=== PATIENT | male | born 1980 | race Caucasian/White ===

== ENCOUNTER 2017-07-30 06:44 | Inpatient (IN) | payer OTHER ==
[~2017-07-30] VITALS: Ht 172.7 cm; Wt 99.9 kg
[2017-07-30] VITALS (9 sets, daily range): BP systolic 94–112; BP diastolic 53–70; PULSE 59–103; TEMP 36.5–36.7; O2SAT 92–95; Ht 172.7 cm; Wt 99.9 kg
[~2017-07-30 06:44] MED LIST: CETI10CH PO; MULT-513 PO; SNG10 PO
[2017-07-30] MEDS ORDERED: SODIUM CHLORIDE 0.9% 1000ML 1,000 ML IV STA (07:12)
[2017-07-30] MEDS ORDERED: ONDANSETRON INJ 2 MG/ML 2 ML VIAL IV STA ×2 (07:12→09:14)
[2017-07-30] MEDS ORDERED: MoRPHine SULFATE 4 MG/ML 1 ML CARP\\VIAL IV STA ×2 (07:12→09:14)
[2017-07-30] MEDS ORDERED: OPTIRAY 320 IV PRN (07:30)
[2017-07-30 07:47] LABS: BASO % 0.2 %; BASO ABS # 0.03 K/uL (0-0.2); COMPLETE YES; EOS % 0.1 %; HEMATOCRIT 45.2 % (42-52); IG% 0.2 %; LYMPH ABS # 0.92 K/uL (1.2-3.4); MEAN CELL VOLUME 83.7 fL (80-100); MEAN CORPUSCULAR HEMOGLOBIN 29.1 pg (25-34); MEAN CORPUSCULAR HGB CONC 34.7 g/dl (32-36); MEAN PLATELET VOLUME 9.7 fL (7.4-10.4); NEUT % 88.5 %; PLATELET COUNT 223 K/uL (130-400); WHITE BLOOD COUNT 15.46 K/uL (4.8-10.8)
[2017-07-30 08:02] LABS: BUN/CREATININE RATIO 14.6 (10-20); CALCIUM 9.1 mg/dl (8.5-10.1); CREATININE 1.1 mg/dl (0.60-1.40); POTASSIUM 3.9 mmol/L (3.5-5.1)
[2017-07-30 08:05] LABS: ALB/GLOB RATIO 1.2 (0.9-2)
--- NOTE | 2017-07-30 09:00 | DIAGNOSTIC IMAGING REPORT ---
ABDOMEN AND PELVIS CT WITH IV CONTRAST CT DOSE: 823.91 mGy.cm HISTORY: Right lower quadrant abdominal pain. TECHNIQUE: Multiaxial CT images of the abdomen and pelvis were performed following the use of intravenous contrast. A dose lowering technique was utilized adhering to the principles of ALARA. COMPARISON STUDY: None. FINDINGS: The lung bases are clear. The liver, spleen, adrenal glands, gallbladder, pancreas, and kidneys are unremarkable. No retroperitoneal lymphadenopathy. Normal bladder. No evidence for bowel obstruction. Dilated and fluid-filled appendix with mild periappendiceal fat stranding consistent with acute appendicitis. The appendix measures up to 1.4 cm and contains a 7 mm appendicolith. No perforation or abscess at this time. IMPRESSION: Acute appendicitis. Electronically signed by: Mauro Conner M.D. 07/30/2017 8:59 AM Dictated Date/Time: 07/30/2017 8:54 AM
[2017-07-30] MEDS ORDERED: PIPERACILLIN/TAZOBACTAM 4.5 GM/100ML D5W IV STA (09:14)
[2017-07-30 09:18] LABS: URINE APPEARANCE CLEAR (CLEAR); URINE BILIRUBIN NEG (NEG); URINE COLOR YELLOW; URINE NITRITE NEG (NEG); URINE SPECIFIC GRAVITY 1.031 (1.000-1.030); UROBILINOGEN NEG (NEG)
[2017-07-30 09:20] LABS: MANUAL MICROSCOPIC REQUIRED? NO; REVIEW REQ? NO
--- NOTE | 2017-07-30 09:36 | History and Physical ---
History & Physical Date Jul 30, 2017. Chief Complaint abdominal pain History of Present Illness The patient is a 36 year old male with complaints of RLQ abd pain w/u in ER shows CT evidence of acute appendicitis Additional History Hepatic Disease: No Endocrine Disorder: No Kidney Disease: No Hypertension: No Heart Disease: No Allergies Coded Allergies: Cat Dander (Verified Allergy, Unknown, NASAL CONGESTION, 09/10/14) Dust (Verified Allergy, Unknown, NASAL CONGESTION, 09/10/14) Grass (Verified Allergy, Unknown, NASAL CONGESTION, 09/10/14) No Known Drug Allergy (Verified Allergy, Unknown, NONE, 09/10/14) Tree Extract (Verified Allergy, Unknown, "TREE ALLERGY", 09/10/14) Uncoded Allergies: BEE STINGS (Allergy, Unknown, UNKNOWN, 07/30/17) Home Medications Scheduled Cetirizine Hcl (Cetirizine Hcl), 10 MG PO DAILY Multivitamins/Minerals (Mvi With Minerals), 1 TAB PO DAILY Physical Examination Skin: warm/dry Eyes: sclerae normal Head: atraumatic Neck: supple Respiratory/Chest: no respiratory distress Cardiovascular: regular rate, rhythm Abdomen / GI: + pertinent finding (mild distention, RLQ tenderness) Diagnosis acute appendicitis Plan of Treatment for laparoscopic appendectomy, possible open operation admit postop- IV fluids, atbx
[2017-07-30] MEDS ORDERED: EpHEDrine SULFATE INJ 50 MG/ML AMP IV PRN (09:45)
[2017-07-30] MEDS ORDERED: ATROPINE SULFATE 0.1 MG/ML 5ML SYR IV PRN (09:45)
[2017-07-30] MEDS ORDERED: HYDROmorphone INJ 1 MG/ML SYR IV PRN (09:45)
[2017-07-30] MEDS ORDERED: MEPERIDINE HCL 25 MG/ML CARP IV PRN (09:45)
[2017-07-30] MEDS ORDERED: ONDANSETRON INJ 2 MG/ML 2 ML VIAL IV PRN ×2 (09:45→11:15)
[2017-07-30] MEDS ORDERED: LABETALOL HCL IV 5 MG/ML 20ML IV PRN (09:45)
[2017-07-30] MEDS ORDERED: FENTANYL CITRATE INJ 50 MCG/1 ML 2 ML VIAL IV PRN (09:45)
[2017-07-30] MEDS ORDERED: DEXAMETHASONE SOD INJ 4 MG/ML VIAL ONE (09:56)
[2017-07-30] MEDS ORDERED: GLYCOPYRROLATE INJ 0.2 MG/ML VIAL ONE (09:56)
[2017-07-30] MEDS ORDERED: PROPOFOL IV EMULSION 10 MG/ML 20 ML VIAL IV ONE ×2 (09:56→09:58)
[2017-07-30] MEDS ORDERED: EpHEDrine SULFATE INJ 50 MG/ML AMP ONE (09:56)
[2017-07-30] MEDS ORDERED: SUCCINYLCHOLINE CHLORIDE 20 MG/ML 10 ML VIAL IV ONE (09:56)
[2017-07-30] MEDS ORDERED: PHENYLEPHRINE HCL INJ 10 MG/ML VIAL ONE (09:56)
[2017-07-30] MEDS ORDERED: LIDOCAINE HCL 2% 2 ML VIAL (20MG/ML) ONE (09:56)
[2017-07-30] MEDS ORDERED: NEOSTIGMINE METHYLSULFATE 5 MG/5 ML SYR ONE (09:56)
[2017-07-30] MEDS ORDERED: ONDANSETRON INJ 2 MG/ML 2 ML VIAL ONE (09:56)
[2017-07-30] MEDS ORDERED: MIDAZOLAM HCL 1 MG/ML 2ML VIAL ONE (09:57)
[2017-07-30] MEDS ORDERED: FENTANYL CITRATE INJ 50 MCG/1 ML 2 ML VIAL ONE ×2 (09:57→10:56)
[2017-07-30] MEDS ORDERED: BUPIVACAINE 0.5 % 5 MG/1 ML MPF 30ML VIAL ONE (10:06)
[2017-07-30] MEDS ORDERED: ROCURONIUM BROMIDE 10 MG/ML 5 ML VIAL IV ONE (10:48)
--- NOTE | 2017-07-30 11:13 | [facility] Operative Report ---
Operative Report Operative Date Jul 30, 2017. Pre-Operative Diagnosis Acute Appendicitis Post-Operative Diagnosis Acute Appendicitis Procedure(s) Performed Laparoscopic Appendectomy Surgeon Dr. Carroll [facility] Cna Surgeon(s) none Estimated Blood Loss 20 ml Findings nonperforated, no abscess Specimens A. Appendix Anesthesia gen Complication(s) None Disposition Recovery Room / PACU I attest to the content of the Intraoperative Record and any orders documented therein. Any exceptions are noted below.
[2017-07-30] MEDS ORDERED: HYDROCODONE/ACETAMOPHEN 5/325MG TAB PO PRN ×2 (11:15)
[2017-07-30] MEDS ORDERED: MoRPHine SULFATE 4 MG/ML 1 ML CARP\\VIAL IV PRN (11:15)
[2017-07-30] MEDS ORDERED: MoRPHine SULFATE 2 MG/ML CARP IV PRN (11:15)
[2017-07-30] MEDS ORDERED: PROMETHAZINE HCL INJ 25 MG in SODIUM CHLORIDE 0.9% 50ML 50 ML IV PRN (11:15)
[2017-07-30] MEDS ORDERED: INFLUENZA VIRUS QUAD VACCINE 0.5 ML SYR IM. ONE (12:00)
[2017-07-30] MEDS ORDERED: INFLUENZA ADMINISTRATION CHARGE ONE (12:00)
--- NOTE | 2017-07-30 12:06 | OPERATIVE REPORT ---
DATE OF OPERATION: 07/30/2017 NAME OF OPERATION: Laparoscopic appendectomy. PREOPERATIVE DIAGNOSIS: Acute appendicitis. POSTOPERATIVE DIAGNOSIS: Same. STAFF SURGEON: Dr. Lavell Carroll. ANESTHESIA: General. DESCRIPTION OF PROCEDURE: The patient was brought into the operating room and placed on the operating table in the supine position. His abdomen was prepped and draped in the usual fashion. Cheng catheter and orogastric tube were placed. 0.5% plain Marcaine was used to anesthetize all incisions. Incision was made above the umbilicus, carrying dissection down, placing a Veress needle, and producing pneumoperitoneum. An 11-mm port was placed at the umbilicus. Then under visualization, a 5-mm port was placed suprapubically and then a 12-mm port placed in left lower quadrant. The appendix was localized in the right lower quadrant and it was very adherent with a small amount of exudate, but there was no cloudy fluid or abscess. The patient's appendix was identified and transected using an Endo-BENNY stapler and then the mesoappendix transected using a second load of Endo-BENNY. The appendix was placed into a bag and then removed through the 12-mm site in the left lower quadrant. After appropriate irrigation and hemostasis, all ports removed. The fascial defect was closed using 0 Vicryl suture. Skin reapproximated using subcuticular 4-0 Monocryl with Dermabond. The patient was transferred to recovery room in stable condition. I attest to the content of the Intraoperative Record and any orders documented therein. Any exception s are noted below.
--- NOTE | 2017-07-30 12:18 | Anesthesiology Progress Note ---
Anesthesia Post Op Note Date & Time Jul 30, 2017 at 12:18 Vital Signs Pain Intensity: 0 Vital Signs Past 12 Hours Date Time Temp Pulse Resp B/P (MAP) Pulse Ox O2 Delivery O2 Flow Rate FiO2 07/30/17 12:00 38.1 92 18 129/74 94 Room Air 07/30/17 11:50 109 18 107/71 94 Room Air 07/30/17 11:40 109 14 115/72 96 Oxymask 10 07/30/17 11:30 89 14 110/76 97 Oxymask 10 07/30/17 11:22 38.1 96 14 114/76 97 Oxymask 10 07/30/17 09:46 102 20 116/77 93 Room Air 07/30/17 09:35 93 Room Air 07/30/17 07:46 84 20 133/74 95 Room Air 07/30/17 06:45 36.8 100 18 118/82 99 Room Air Notes Mental Status: alert / awake / arousable, participated in evaluation Pt Amnestic to Procedure: Yes Nausea / Vomiting: adequately controlled Pain: adequately controlled Airway Patency, RR, SpO2: stable & adequate BP & HR: stable & adequate Hydration State: stable & adequate Anesthetic Complications: no major complications apparent
[2017-07-30] MEDS ORDERED: PROMETHAZINE HCL INJ 12.5 MG in SODIUM CHLORIDE 0.9% 50ML 50 ML IV PRN (13:30)
[2017-07-30] MEDS: LACTATED RINGER'S 1000ML 1,000 ML IV SCH ×2 (13:45→20:14)
[2017-07-30] MEDS ORDERED: CEFOXITIN IV 1,000 MG in DEXTROSE 5% 50ML 50 ML IV SCH (14:00)
[2017-07-30] MEDS ORDERED: HYDR-5688 PO (14:02)
[2017-07-30] MEDS ORDERED: AMOX875T PO (14:02)
--- NOTE | 2017-07-30 14:04 | Discharge Instructions ---
Discharge Instructions Date of Service Jul 30, 2017. Admission Reason for Admission: Lwr Right Abdominal Pain,Nausea Discharge Discharge Diagnosis / Problem: acute appendicitis Discharge Goals Goal(s): Decrease discomfort, Improve function, Improve disease control Activity Recommendations Activity Limitations: as noted below Lifting Limitations: no more than 25 pounds Exercise/Sports Limitations: until after follow-up appointment May Resume Sexual Activity: when tolerated Shower/Bathe: tomorrow Driving or Machine Use: resume 3 days after discharge SPECIAL CARE INSTRUCTIONS: * Cover incisions and change daily for comfort/drainage. may leave uncovered with dermabond * Empty drain 2-3 times per day and record. * May use ibuprofen for pain as tolerated. * Expect some swelling and bruising. Call your doctor if: * Temperature above 101 degrees * Pain not relieved by pain medicine ordered * There is increased drainage or redness from any incision * You have any unanswered questions or concerns [phone]. FOLLOW UP VISIT: If not already scheduled, please call the office for a follow-up visit. for 2 weeks- check up , no sutures to remove call with questions/ concerns OFFICE PHONE NUMBER: Dr. Carroll Office . Current Hospital Diet Patient's current hospital diet: Regular Diet Discharge Diet Recommended Diet: Regular Diet Procedures Procedures Performed: Laparoscopic Appendectomy Pending Studies Studies pending at discharge: no Medical Emergencies . Who to Call and When: Medical Emergencies: If at any time you feel your situation is an emergency, please call 911 immediately. . Non-Emergent Contact Non-Emergency issues call your: Primary Care Provider, Surgeon . "Provider Documentation" section prepared by Lavell Carroll. . VTE Core Measure Inpt VTE Proph given/why not?: SCD's
[2017-07-30] MEDS: DOCUSATE SODIUM/SENNA 50/8.6MG TAB PO SCH ×2 (14:33→20:14)
[2017-07-30] MEDS: CEFOXITIN IV 2,000 MG in DEXTROSE 5% 50ML 50 ML IV SCH ×2 (15:59→22:39)
--- NOTE | 2017-07-30 18:48 | EMERGENCY ROOM VISIT NOTE ---
ED Visit Note First contact with patient: 07:04 CHIEF COMPLAINT: Abdominal pain HISTORY OF PRESENT ILLNESS: This 36-year-old white male patient complains of gradual onset of diffuse abdominal pain, that started mild and constant around 11 PM last night. It was not localized anywhere initially but is now felt in the right lower quadrant of the abdomen. The pain is sometimes crampy in nature. Positive vomiting well as nausea and loss of appetite. He was at a wedding last night and states he did eat a fair amount of food. He initially thought it was stomach upset and bowel gas. He has tried to move his bowels several times with no change in his discomfort. No abdominal trauma. There has been no dysuria or increased urinary frequency. No hematuria. No back pain but he does complain of lumbar soreness. They deny fevers, chills, sweats, chest pain, or shortness of breath. Pain is 9/10. His accompanies him today. No prior history of abdominal surgery. REVIEW OF SYSTEM: HEENT: No dizziness, visual problems, hearing loss, or tinnitus. There is no difficulty swallowing and no oral lesions are present. LYMPH: No adenopathy. PULMONARY: No cough, shortness of breath, sputum production or hemoptysis. CARDIOVASCULAR: No chest pain, palpitations, shortness of breath or peripheral edema. GASTROINTESTINAL: No diarrhea, constipation, or vomiting. GENITOURINARY: No dysuria, frequency, urgency or nocturia. NEUROLOGIC: No weakness, muscle tenderness, epilepsy or history of neurological problems. MUSCULOSKELETAL: No history of joint tenderness/swelling. SKIN: No rashes or lesions. PSYCHIATRIC: No history of depression or mental illness. ENDOCRINE: No history of diabetes, thyroid disorders, or abnormal hair growth. PMH: Supplemental sheet was reviewed and signed. Previous surgeries: Hypospadia reconstruction 2012 Medical history: Significant for seasonal allergies Current medications: Zyrtec, multivitamin Allergies: NKDA Family history: History of diabetes, heart disease, hypertension, and cancer. Mother is living. Father is from suicide. SOCIAL HISTORY: Patient lives at home with his . Employed. No tobacco use , no EtOH use. PHYSICAL EXAM: Vital Signs: Afebrile. Reviewed and filed in patient's chart. Mildly hypertensive. General: Well-developed, well-nourished, young white male , in obvious discomfort. No acute distress. He is laying on a bed. Alert and oriented. Skin: Warm and dry with good turgor. No rashes or lesions. No ecchymosis or erythema. The patient is not diaphoretic. No abrasions. NECK: Supple, non-tender. HEAD: Atraumatic, without temporal or scalp tenderness. EYES: PERRL, EOMI, no discharge or injection. CHEST: Non-tender, symmetrical rise with inspiration, no retractions. LUNGS: Clear to auscultation and breath sounds equal, no wheezes, rales, or rhonchi. Good air movement. HEART: Regular and normal heart sounds, no murmurs, gallops, or rubs. Peripheral pulses are 2+ . ABDOMEN: Moderate tenderness in the RLQ, normal bowel sounds. No rebound or rigidity but there is guarding. No masses or organs are felt. No flank tenderness. No distension. EXTREMITIES: Symmetrical, full range of motion, equal tone and strength. No cyanosis, edema, joint tenderness or effusion. NEUROLOGICAL: Sensory and motor functions grossly intact. EMERGENCY DEPARTMENT COURSE: Data: CBC shows an elevation in white count at 15.4. PRP is unremarkable. Urinalysis is normal. CT scan of the abdomen with IV contrast was obtained and was read by radiology. It is positive for acute appendicitis. DIAGNOSIS: Acute Appendicitis TREATMENT PLAN: Patient was educated regarding today's findings. Conservative care measures were discussed. IV access was established. Labs were obtained. Patient was given doses of morphine 4 mg IV 2 and Zofran 4 mg IV. He was hydrated with 1 L normal sterile saline IV at 150 mL per hour. He remained stable while in the ED. Once the diagnosis of acute appendicitis was confirmed , he was given Zosyn 4.5 g IV in preparation for the OR. I did consult Dr. Carroll from general surgery. He did come to the ED to evaluate the patient. Please see his dictation for final management. Current/Historical Medications Scheduled Amoxicillin & Pot Clavulanate (Augmentin 875-125 mg), 1 TAB PO BID Cetirizine Hcl (Cetirizine Hcl), 10 MG PO DAILY Multivitamins/Minerals (Mvi With Minerals), 1 TAB PO DAILY Scheduled PRN Hydrocodone/Acetaminophen 5MG/325MG ([place] 5MG/325MG), 1-2 TABLET PO q 6 hrs PRN for Pain Allergies Coded Allergies: Cat Dander (Verified Allergy, Unknown, NASAL CONGESTION, 09/10/14) Dust (Verified Allergy, Unknown, NASAL CONGESTION, 09/10/14) Grass (Verified Allergy, Unknown, NASAL CONGESTION, 09/10/14) No Known Drug Allergy (Verified Allergy, Unknown, NONE, 09/10/14) Tree Extract (Verified Allergy, Unknown, "TREE ALLERGY", 09/10/14) Uncoded Allergies: BEE STINGS (Allergy, Unknown, UNKNOWN, 07/30/17) Vital Signs Date Time Temp Pulse Resp B/P (MAP) Pulse Ox O2 Delivery O2 Flow Rate FiO2 07/30/17 09:46 102 20 116/77 93 Room Air 07/30/17 09:35 93 Room Air 07/30/17 07:46 84 20 133/74 95 Room Air 07/30/17 06:45 36.8 100 18 118/82 99 Room Air Laboratory Results 07/30/17 07:36 Red Blood Count 5.40, Mean Corpuscular Volume 83.7, Mean Corpuscular Hemoglobin 29.1, Mean Corpuscular Hemoglobin Concent 34.7, Mean Platelet Volume 9.7, Neutrophils (%) (Auto) 88.5, Lymphocytes (%) (Auto) 6.0, Monocytes (%) (Auto) 5.0, Eosinophils (%) (Auto) 0.1, Basophils (%) (Auto) 0.2, Neutrophils # (Auto) 13.69, Lymphocytes # (Auto) 0.92, Monocytes # (Auto) 0.78, Eosinophils # (Auto) 0.01, Basophils # (Auto) 0.03 07/30/17 07:36 Test 07/30/17 07:36 07/30/17 09:10 White Blood Count 15.46 K/uL (4.8-10.8) Red Blood Count 5.40 M/uL (4.7-6.1) Hemoglobin 15.7 g/dL (14.0-18.0) Hematocrit 45.2 % (42-52) Mean Corpuscular Volume 83.7 fL (80-100) Mean Corpuscular Hemoglobin 29.1 pg (25-34) Mean Corpuscular Hemoglobin Concent 34.7 g/dl (32-36) Platelet Count 223 K/uL (130-400) Mean Platelet Volume 9.7 fL (7.4-10.4) Neutrophils (%) (Auto) 88.5 % Lymphocytes (%) (Auto) 6.0 % Monocytes (%) (Auto) 5.0 % Eosinophils (%) (Auto) 0.1 % Basophils (%) (Auto) 0.2 % Neutrophils # (Auto) 13.69 K/uL (1.4-6.5) Lymphocytes # (Auto) 0.92 K/uL (1.2-3.4) Monocytes # (Auto) 0.78 K/uL (0.11-0.59) Eosinophils # (Auto) 0.01 K/uL (0-0.5) Basophils # (Auto) 0.03 K/uL (0-0.2) RDW Standard Deviation 38.2 fL (36.4-46.3) RDW Coefficient of Variation 12.7 % (11.5-14.5) Immature Granulocyte % (Auto) 0.2 % Immature Granulocyte # (Auto) 0.03 K/uL (0.00-0.02) Anion Gap 8.0 mmol/L (3-11) Est Creatinine Clear Calc Drug Dose 104.3 ml/min Estimated GFR () 98.2 Estimated GFR (Non- 84.7 BUN/Creatinine Ratio 14.6 (10-20) Calcium Level 9.1 mg/dl (8.5-10.1) Total Bilirubin 0.9 mg/dl (0.2-1) Aspartate Amino Transf (AST/SGOT) 19 U/L (15-37) Alanine Aminotransferase (ALT/SGPT) 50 U/L (12-78) Alkaline Phosphatase 59 U/L (45-117) Total Protein 7.7 gm/dl (6.4-8.2) Albumin 4.2 gm/dl (3.4-5.0) Globulin 3.5 gm/dl (2.5-4.0) Albumin/Globulin Ratio 1.2 (0.9-2) Urine Color YELLOW Urine Appearance CLEAR (CLEAR) Urine pH 8.0 (4.5-7.5) Urine Specific [place] 1.031 (1.000-1.030) Urine Protein NEG (NEG) Urine Glucose (UA) NEG (NEG) Urine Ketones NEG (NEG) Urine Occult Blood NEG (NEG) Urine Nitrite NEG (NEG) Urine Bilirubin NEG (NEG) Urine Urobilinogen NEG (NEG) Urine Leukocyte Esterase NEG (NEG) Medications Administered Medications (Trade) Dose Ordered Sig/Melvi Route Start Time Stop Time Status Last Admin Dose Admin Sodium Chloride 1,000 ml @ 150 mls/hr Q6H40M STAT IV 07/30/17 07:12 07/30/17 13:17 DC 07/30/17 07:42 150 MLS/HR Ondansetron HCl (Zofran Inj) 4 mg NOW STAT IV 07/30/17 07:12 07/30/17 07:20 DC 07/30/17 07:41 4 MG Morphine Sulfate (MoRPHine SULFATE INJ) 4 mg NOW STAT IV 07/30/17 07:12 07/30/17 07:20 DC 07/30/17 07:42 4 MG Piperacillin Sod/ Tazobactam Sod (Zosyn Iv) 4.5 gm NOW STAT IV 07/30/17 09:14 07/30/17 09:15 DC 07/30/17 09:38 4.5 GM Morphine Sulfate (MoRPHine SULFATE INJ) 4 mg NOW STAT IV 07/30/17 09:14 07/30/17 09:15 DC 07/30/17 09:38 4 MG Ondansetron HCl (Zofran Inj) 4 mg NOW STAT IV 07/30/17 09:14 07/30/17 09:15 DC 07/30/17 09:38 4 MG Bupivacaine HCl (Marcaine 0.5% MPF Inj) 30 ml STK-MED ONCE .ROUTE 07/30/17 10:06 07/30/17 10:07 DC 07/30/17 10:30 10 ML Ondansetron HCl (Zofran Inj) 4 mg Q6H PRN IV 07/30/17 11:15 08/29/17 11:14 07/30/17 14:40 4 MG Lactated Ringer's 1,000 ml @ 100 mls/hr Q10H IV 07/30/17 11:13 08/29/17 11:12 07/30/17 13:45 100 MLS/HR Departure Information Prescriptions Amoxicillin & Pot Clavulanate (Augmentin 875-125 mg) 1 Tab Tab 1 TAB PO BID, #10 TAB Prov: Lavell Carroll M.D. 07/30/17 Hydrocodone/Acetaminophen 5MG/325MG ([place] 5MG/325MG) Tab 1-2 TABLET PO q 6 hrs Y for Pain, #30 TAB PRN PAIN Prov: Lavell Carroll M.D. 07/30/17 Referrals Lavell Cervantes M.D. (PCP) Patient Instructions My [facility]
[2017-07-30] MEDS ORDERED: NURSING DECISION MEDICATION ORDER SCH (22:45)
[2017-07-31] MEDS ORDERED: COUGH DROP (SUGAR FREE) LOZ 24 LOZ/1 BOX PO PRN (01:00)
[2017-07-31 03:57] VITALS: BP 97/59; PULSE 59; TEMP 36.6; O2SAT 98
[2017-07-31 05:18] LABS: HEMATOCRIT 41.9 % (42-52); MEAN CELL VOLUME 85.9 fL (80-100); MEAN CORPUSCULAR HEMOGLOBIN 28.1 pg (25-34); MEAN CORPUSCULAR HGB CONC 32.7 g/dl (32-36); MEAN PLATELET VOLUME 9.5 fL (7.4-10.4); PLATELET COUNT 206 K/uL (130-400); RED BLOOD COUNT 4.88 M/uL (4.7-6.1); WHITE BLOOD COUNT 12.14 K/uL (4.8-10.8)
[2017-07-31 05:32] LABS: PROTHROMBIN TIME (PATIENT) 10.2 SECONDS (9.0-12.0)
[2017-07-31 05:42] LABS: BUN/CREATININE RATIO 13.5 (10-20); CALCIUM 8.4 mg/dl (8.5-10.1); CREATININE 1.2 mg/dl (0.60-1.40); MAGNESIUM 2.2 mg/dl (1.8-2.4); POTASSIUM 4.4 mmol/L (3.5-5.1)
[2017-07-31 05:43] LABS: PHOSPHORUS 2.8 mg/dl (2.5-4.9)
[2017-07-31] MEDS: CEFOXITIN IV 2,000 MG in DEXTROSE 5% 50ML 50 ML IV SCH (06:06)
[2017-07-31] MEDS: LACTATED RINGER'S 1000ML 1,000 ML IV SCH (06:06)
[2017-07-31 07:20] VITALS: BP 100/65; PULSE 71; TEMP 37.2; O2SAT 94
[2017-07-31] MEDS ORDERED: HEPARIN SOD 5000 UNIT/0.5 ML CARP SQ SCH (08:00)
[2017-07-31] MEDS: DOCUSATE SODIUM/SENNA 50/8.6MG TAB PO SCH (08:52)
[2017-07-31] MEDS ORDERED: NURSING VERBAL MED ORDER ONE (09:00)
[2017-07-31 11:15] VITALS: BP 123/79; PULSE 92; TEMP 36.6; O2SAT 96
[2017-07-31 11:20] VITALS: BP 123/79; PULSE 92; TEMP 36.6; O2SAT 96
--- NOTE | 2017-08-02 10:29 | DISCHARGE SUMMARY ---
PRIMARY DISCHARGE DIAGNOSIS: Acute appendicitis. PROCEDURE PERFORMED: Laparoscopic appendectomy. HOSPITAL COURSE: The patient is a 36-year-old male who presented to the Emergency Department with complaint of abdominal pain that began the previous evening. His white count was 15,000. CT showed a dilated appendix with appendicolith consistent with appendicitis. He was taken to the operating room that morning for laparoscopic appendectomy. Procedure was well tolerated. He was transferred to the surgical floor for observation. The next day, he was tolerating oral analgesics and diet. His abdomen was benign. He was stable for discharge. His white count improved to 12,000. DISCHARGE INSTRUCTIONS: Discharge home. Follow up with Dr. Carroll in 2 weeks. DISCHARGE MEDICATIONS: [place] 1-2 tablets every 6 hours as needed, Augmentin 875 mg p.o. b.i.d. x5 days, and resume his home multivitamin, Zyrtec 10 mg daily.
== END 2017-07-31 12:49 | disposition home or self-care (01) | DRG 343 ==
LOC: C.EDB 06:45 → C.3E 11:18 → ENRESERV 12:06
PROVIDERS: ADMIT Surgery; ATTEND Surgery
PROC: 0DTJ4ZZ Resection of Appendix, Percutaneous Endoscopic Approach (ICD-10-PCS; principal; 2017-07-30 10:00)
DX: K35.80 Unspecified acute appendicitis (principal); J30.2 Other seasonal allergic rhinitis; Z79.899 Other long term (current) drug therapy; Z83.3 Family history of diabetes mellitus; Z82.49 Family history of ischemic heart disease and other diseases of the circulatory system; Z81.8 Family history of other mental and behavioral disorders